=== PATIENT | male | born 1965 | race Caucasian/White ===

== ENCOUNTER → 2019-12-22 | Day surgery (SDC) | payer BC ==
--- NOTE | 2019-12-20 09:00 | Diagnostic Imaging Report ---
EXAMINATION: PA and lateral views of the chest. COMPARISON: None CLINICAL HISTORY: Preop exam for kidney stones DISCUSSION: Lines/tubes: None. Lungs: The lungs are well inflated and clear. There is no evidence of pneumonia or pulmonary edema. Pleura: There is no pleural effusion or pneumothorax. Heart and mediastinum: Cardiomediastinal silhouette is unremarkable. Pulmonary vasculature is normal. Bones and soft tissues: No acute bony abnormalities. Age-appropriate degenerative changes in the thoracic spine IMPRESSION: No acute cardiopulmonary abnormalities. Signed by: Dr. Femi Kraus M.D. on 12/20/2019 8:56 AM
[2019-12-20 09:17] LABS: BASOPHILS % 0.9 % (0.0-1.0); EOSINOPHILS # (AUTO) 0.1 (0.0-0.4); EOSINOPHILS % 1.1 % (0.0-6.0); HEMATOCRIT 50.2 % (38.2-49.6); HEMOGLOBIN 17.4 g/dL (14.0-18.0); LYMPHOCYTES # (AUTO) 1.7 (1.0-3.2); LYMPHOCYTES % 36.4 % (18.0-39.1); MEAN CORPUSCULAR HEMOGLOBIN 30.1 pg (28-32); MEAN CORPUSCULAR HGB CONC 34.7 g/dL (31-35); MEAN CORPUSCULAR VOLUME 86.7 fL (81-99); MONOCYTES # (AUTO) 0.3 (0.2-0.8); MONOCYTES % 5.8 % (4.4-11.3); NEUTROPHILS # (AUTO) 2.6 (2.1-6.9); NEUTROPHILS % 55.6 % (38.7-80.0); PLATELET COUNT 188 x10e3/uL (140-360); RED BLOOD COUNT 5.79 x10e6/uL (4.3-5.7)
[2019-12-20 09:49] LABS: ANION GAP 16.4 mmol/L (8-16); BLOOD UREA NITROGEN 13 mg/dL (7-26); BUN/CREATININE RATIO 15 (6-25); CALCIUM 9.4 mg/dL (8.4-10.2); CARBON DIOXIDE 25 mmol/L (22-29); CHLORIDE 105 mmol/L (98-107); CREATININE, SERUM 0.87 mg/dL (0.72-1.25); EST GLOMERULAR FILTRATION RATE > 60 ML/MIN (60-); GLUCOSE 111 mg/dL (74-118); POTASSIUM 3.4 mmol/L (3.5-5.1); SODIUM 143 mmol/L (136-145)
[~2019-12-22] MED LIST: AMLODIPINE BESYL5 MG PO; CEFTRIAXONE SOD 1 GM/NS 50 ML 50 ML IV ONE; CHLORTHALIDONE25 MG; DEXAMETHASONE SOD PHOS INJ 4 MG/ML VIAL ONE; DIOVAN80 MG PO; IOPAMIDOL 300MG/ML 50ML INFUS..BTL IV ONE; LIDOCAINE HCL 2% LOCAL INJ 5 ML SDV VIAL INJ ONE; MIDAZOLAM HCL 2 MG/2 ML VIAL ONE; ONDANSETRON HCL INJ 2MG/ML 2ML 2 MG/ML VIAL ONE; PANTOPRAZOLE SO40 MG PO; PROPOFOL IV EMULSION 10 MG/ML 20 ML VIAL ONE; SEVOFLURANE INHAL SOLN 250 ML PEN BTL ONE; TESTONE CI200 MG/1 M IM; TESTOSTERONE25 GM; ZEBETA10 MG PO
[2019-12-22 11:53] VITALS: BP 157/71
--- NOTE | 2019-12-29 08:26 | Operative Report ---
DATE OF PROCEDURE: 12/22/2019 SURGEON: Artie Blanchard MD PREOPERATIVE DIAGNOSES: 1. Right ureteral stones. 2. Bladder stones. POSTOPERATIVE DIAGNOSES: 1. Right ureteral stones. 2. Bladder stones. OPERATIVE PROCEDURES PERFORMED: 1. Cystoscopy. 2. Bilateral retrograde pyelogram. 3. Cystolitholapaxy. 4. Right ureteroscopy with stone extraction. 5. Placement of right ureteral stent. ANESTHESIA: General anesthesia. ESTIMATED BLOOD LOSS: Minimal. INDICATIONS: Mr. Avtar Carrera is a 54-year-old gentleman with a recent history of right flank abdominal pain, who was found by CT scan to have some right kidney ureteral stones and some mild bladder stones. He now presents for definitive surgical management of these problems. PROCEDURE IN DETAIL: The patient brought into the operative room, placed in supine position. After initiation of general anesthesia, he was placed in dorsal lithotomy position and prepped and draped in the usual sterile fashion. Cystourethroscopy was performed using a 22-Kosovan cystoscope. The anterior and posterior urethra were noted to be normal. The prostate revealed moderate elevation of the median bar, but normal lateral lobar tissue. The bladder was entered with mild difficulty. Upon entrance into the bladder, the ureteral orifices were in normal anatomical position. There was largely clear efflux seen coming from both sides. There were 3 or 4 bladder stones measuring in size from about 0.5 cm to 1 cm in diameter. There was grade 1-2 trabeculations noted in the bladder. Using a 5-Kosovan open-ended catheter, bilateral retrograde pyelograms were performed. This revealed no stones or filling defects on the left side, but there were some filling defects on the right side suspicious for small calculi. The stones in the bladder were irrigated free and one large one was broken with alligator forceps. These fragments were removed and sent to pathology for microscopic analysis. A wire was then placed up into the right renal pelvis and a right ureteral access sheath was placed. Flexible ureteroscopy was then performed. The visualized portion of the proximal ureter was normal. There was some mild narrowing noted in the region of the UPJ, presumably from recent stone passage. Visualization of all of the calices revealed multiple small stones in varying sizes between 3 and 5 mm in diameter. Most of these were irrigated free with the larger ones were removed with the basket. All the obtained stones were sent to pathology for microscopic analysis. Once there were normal calcifications seen, the ureteroscope and the ureteral access sheath were both removed and a double pigtail stent was placed such that one coil was in the renal pelvis and the subsequent coil was in the bladder. The string was allowed to exit the urethral meatus. The bladder was then drained in its entirety and the cystoscope and the sheath were removed. The patient was returned to supine position and anesthesia was reversed. He was transferred to a bed and taken to the postanesthesia care unit in good condition. Of note, the needle and instrument count were correct at the conclusion of the case. MD BUBBA Serna/LEXUS /[id number]
== END | disposition home or self-care (01) ==
LOC: OR 07:20
PROVIDERS: ATTEND Urology
DX: N20.1 Calculus of ureter (principal); N21.0 Calculus in bladder; N32.89 Other specified disorders of bladder; G47.33 Obstructive sleep apnea (adult) (pediatric); I10 Essential (primary) hypertension; K44.9 Diaphragmatic hernia without obstruction or gangrene; K21.9 Gastro-esophageal reflux disease without esophagitis; Z91.041 Radiographic dye allergy status; Z91.012 Allergy to eggs; Z01.810 Encounter for preprocedural cardiovascular examination; Z01.818 Encounter for other preprocedural examination; Z87.891 Personal history of nicotine dependence; Z68.41 Body mass index [BMI] 40.0-44.9, adult
CPT/HCPCS: 36415; 52317; 52332; 52352; 71046; 74420; 80048; 85025; 88300; 93005; C1758; C1769; C2617; J0696; J1100; J2001; J2250; J2405; J2704; Q9967

== ENCOUNTER → 2020-02-09 | Day surgery (SDC) | payer BC ==
[~2020-02-09] MED LIST changes: -CEFTRIAXONE SOD 1 GM/NS 50 ML 50 ML IV ONE; -DEXAMETHASONE SOD PHOS INJ 4 MG/ML VIAL ONE; +FENTANYL CITRATE/PF 100MCG/2 ML INJ ONE; -IOPAMIDOL 300MG/ML 50ML INFUS..BTL IV ONE; -LIDOCAINE HCL 2% LOCAL INJ 5 ML SDV VIAL INJ ONE; -ONDANSETRON HCL INJ 2MG/ML 2ML 2 MG/ML VIAL ONE; -SEVOFLURANE INHAL SOLN 250 ML PEN BTL ONE
--- OUTSIDE RECORDS SUMMARY | 2020-02-09 11:03 | XMS REPORT ---
Author Author [facility] t Organization [facility] Address [address] [place] [address] Phone Unavailable Care Team Providers Care Brand Inspector Name Role Phone Bharat ETIENNE, Tom PCP Christian DOVE Attphys Unavailable Tom Nicholson MD Attphys Payers Payer Name Policy Type Policy Number Effective Date Expiration Date S juanito [employer]M BLUE CROSSxxxxxxxxxxxx2018-PresentPPO xxxxxxxxxxxx 2018 00:00:00 Luis Felipe Cheney Problems Condition Name Condition Details Condition Category Status Onset Date Resolution Date Last Treatment Date Treating Clinician Comments Source Abnormal EKG Abnormal EKG Disease Active 2019-10-17 00:00:00 Overview: with risk factors will refer to cardiology for eval Luis Felipe Cheney Prostate cancer screening Prostate cancer screening Disease Ac tive 2019-10-13 00:00:00 Luis Felipe torres History of peptic ulcer History of peptic ulcer Disease Active 2019-10-13 00:00:00 Luis Felipe torres Gastroesophageal reflux disease with esophagitis Gastr oesophageal reflux disease with esophagitis Disease Active 2019-10-13 00:00:00 Luis Felipe Cheney Morbid obesity Morbid obesity Disease Active 2019-10-13 00:00:00 Luis Felipe Cheney TRENA on CPAP TRENA on CPAP Disease Active 2019-10-13 00:00:00 Luis Felipe Cheney Uncontrolled hypertension Uncontrolled hypertension Disease Ac tive 2019-10-13 00:00:00 Luis Felipe torres Male hypogonadism Male hypogonadism Disease Active 2019-10-13 00:00:00 Luis Felipe Cheney Allergies, Adverse Reactions, Alerts Allergy Name Allergy Type Status Severity Reaction(s) Onset Date Inacti ve Date Treating Clinician Comments Source Egg Propensity to adverse reactions to drug Active Shortness Of Breath 2019-10-13 00:00:00 Luis Felipe Meth odist Social History Social Habit Start Date Stop Date Quantity Comments Source History of tobacco use Current smoker Luis Felipe Cheney Sex Assigned At [facility] sp[facility] Shravan Alcohol intake 2019-10-13 00:00:00 2019-10-13 00:00:00 Ex-drinker (fi nding) Luis Felipe Cheney Smoking Status Start Date Stop Date Source Former smoker 2019-10-13 00:00:00 2019-10-13 00:00:00 Luis Felipe Cheney Medications Ordered Medication Name Filled Medication Name Start Date Stop Da te Current Medication? Ordering Clinician Indication Dosage Frequency Signature (SIG) Comments Components Source testosterone cypionate 200 mg/mL kit 2019-10-13 15:45:51 Ye s 50mg Inject 50 mg into the shoulder, thigh, or buttocks. Luis Felipe Cheney pantoprazole (PROTONIX) 40 MG EC tablet 2019-10-13 00:00:00 Yes 40mg QD Take 1 tablet (40 mg total) by mouth daily. Luis Felipe Cheney bisoprolol (ZEBETA) 5 MG tablet 2019-10-13 00:00:00 05:59:00 No 5mg QD Take 1 tablet (5 mg total) by mouth daily. Luis Felipe Cheney valsartan (DIOVAN) 80 MG tablet 2019-10-13 00:00:00 05:59:00 No 80mg QD Take 1 tablet (80 mg total) by mouth daily. Luis Felipe Cheney NIFEdipine CC (ADALAT CC) 90 MG 24 hr tablet 201 06-09-23 00:00:00 2019-10-13 00:00:00 No 90mg QD Take 90 mg by mouth daily. Luis Felipe Cheney pantoprazole (PROTONIX) 40 MG EC tablet 00:00:00 2019-10-13 00:00:00 No 40mg QD Take 40 mg by mouth daily. Luis Felipe Cheney escitalopram (LEXAPRO) 5 MG tablet 2019-09-15 00:00:00 00:00:00 No 5mg QD Take 5 mg by mouth daily. Luis Felipe Cheney Vital Signs Vital Name Observation Time Observation Value Comments Source Systolic blood pressure 2019-10-13 15:42:00 146 mm[Hg] Luis Felipe Cheney Diastolic blood pressure 2019-10-13 15:42:00 96 mm[Hg] Luis Felipe Cheney Heart rate 2019-10-13 15:42:00 78 /min Luis Felipe Cheney Body temperature 2019-10-13 15:42:00 37.28 Yolette Hous errol Shravan Body height 2019-10-13 15:42:00 172.7 cm Luis Felipe Cheney Body weight 2019-10-13 15:42:00 131.362 kg Luis Felipe Cheney BMI 2019-10-13 15:42:00 44.03 kg/m2 Luis Felipe Cheney Oxygen saturation in Arterial blood by Pulse oximetry 10-13 15:42:00 97 /min Luis Felipe Cheney Procedures Procedure Date / Time Performed Performing Clinician [facility] e ECG 12-LEAD 2019-10-13 17:56:51 Tom Nicholson BASIC METABOLIC PANEL 2019-10-13 06:00:00 Tom Nicholson CBC WITH PLATELET AND DIFFERENTIAL 2019-10-13 06:00:00 Cooper Nicholson HEMOGLOBIN A1C 2019-10-13 06:00:00 Tom Nicholson HEPATIC FUNCTION PANEL 2019-10-13 06:00:00 Tom Nicholson on Shravan LIPID PANEL 2019-10-13 06:00:00 Tom Nicholson PROSTATE SPECIFIC ANTIGEN 2019-10-13 06:00:00 Tom Nicholson THYROID STIMULATING HORMONE 2019-10-13 06:00:00 Tom Nicholson URINALYSIS, AUTOMATED WITH MICROSCOPY 2019-10-13 06:00:00 Tom Nicholson PROLACTIN LEVEL 2019-10-13 06:00:00 Tom Nicholson TESTOSTERONE LEVEL, TOTAL, ADULT MALE 2019-10-13 06:00:00 Tom Nicholson Plan of Care Planned Activity Planned Date Details Comments Source Future Scheduled Test [code = ] Future Scheduled Test [code = ] Future Scheduled Test [code = ] Results Test Description Test Time Test Comments Results Result Comments Source CHEST 2 VIEWS 2019-12-20 08:56:00 [place] [address] Patient Name: YEVGENIY MCCOY MR #: [id number] : 1965 Age/Sex: 54/M Req #: [id number] [facility] Physician: Ordered by: LOS DOVE MD Report #: [id number] Location: OR Room/Bed: Procedure: [id number] DX/CHEST 2 VIEWS Exam Date: 12/20/19 Exam Time: 0840 REPORT STATUS: Signed EXAMINATION: PA and lateral views of the chest. COMPARISON: None CLINICAL HISTORY: Preop exam for kidney stones DISCUSSION: Lines/tubes: None. Lungs: The lungs are well inflated and clear. There is no evidence of pneumonia or pulmonary edema. Pleura: There is no pleural effusion or pneumothorax. Heart and mediastinum: Cardiomediastinal silhouette is unremarkable. Pulmonary vasculature is normal. Bones and soft tissues: No acute bony abnormalities. Age-appropriate degenerative changes in the thoracic spine IMPRESSION: No acute cardiopulmonary abnormalities. Signed by: Dr. Femi Kraus M.D. on 12/20/2019 8:56 AM Dictated By: FEMI KRAUS MD 5 Transcribed By: RIYA on 12/20/19855 COPY TO: LOS DOVE MD Basic metabolic panel 2019-10-15 11:26:00 Test Item Glucose (test code = 2345-7) 110 mg/dL 65-99 H Fasting reference interval For someone without known diabetes, a glucose valuebetween 100 and 125 mg/dL is consistent withprediabetes and should be confirmed with afollow-up test. BUN (test code = 3094-0) 8 mg/dL 7-25 Creatinine (test code = 2160-0) 0.94 mg/dL 0.7-1.33 For patients >49 years of age, the reference limitfor Creatinine is approximately 13% higher for peopleidentified as -Fijian. EGFR Non-Afr. Fijian (test code = 2775) 90 > OR = 60 mL /min/1.73m2 EGFR (test code = 08746-7) 105 > OR = 60 mL/min/1.73m2 BUN/creatinine ratio (test code = 3097-3) NOT APPLICABLE 6- 22 (ana laura c) Sodium (test code = 2951-2) 144 mmol/L 135-146 Potassium (test code = 2823-3) 3.2 mmol/L 3.5-5.3 L Chloride (test code = 5-0) 102 mmol/L 98-110 CO2 (test code = 2027-) 30 mmol/L 20-32 Calcium (test code = 02437-8) 9.4 mg/dL 8.6-10.3 CHEMO (test code = CHEMO) FASTING:YESCOLLECTION KIT GI KATHLEEN TO PATIENT. PATIENT ADVISED TO RETURN.FASTING: YES RAC (test code = RAC) Performing Organization Info rmation: Site ID: RGA Name: [facility] Address: [address] [place] [phone] Director: Jordi Pastrana Lab Interpretation (test code = 39747-2) Abnormal [place] [facility] [id number] 11:26:00* Test Item Value Reference Range Interpretation Comments Cholesterol, total (test code = 2093-3) 256 mg/dL <200 H HDL cholesterol (test code = 5-9) 49 mg/dL >40 Triglycerides (test code = 2571-8) 154 mg/dL <150 H LDL cholesterol calculated (test code = 18577-3) 177 mg/dL (calc) H Reference range: <100 Desirable range <100 mg/dL for primary prevention; <70 mg/dL for patients with CHD or diabetic patients with > or = 2 CHD risk factors. LDL-C is now calculated using the Abraham-Sania calculation, which is a validated novel method providing better accuracy than the Friedewald equation in the estimation of LDL-C. Abraham SS et al. ROBLES. 2013;310(19): 0687-2826 (http:/ /education.Comparameglio.it/faq/ZMY667) Cholesterol/HDL ratio (test code = 9830-1) 5.2 <5.0 (calc) H Non-HDL cholesterol (test code = 87060-7) 207 <130 mg/dL ( calc) H For patients with diabetes plus 1 major ASCVD risk factor, treating to a non-HDL-C goal of <100 mg/dL (LDL-C of <70 mg/dL) is considered a therapeutic option. CHEMO (test code = CHEMO) FASTING:YESCOLLECTION KIT GI KATHLEEN TO PATIENT. PATIENT ADVISED TO RETURN.FASTING: YES RAC (test code = RAC) Performing Organization Info rmation: Site ID: JONAH Name: [facility] Address: [address] [place] [phone] Director: Jordi Pastrana Lab Interpretation (test code = 89118-9) Abnormal [place] [facility] function [id number] 11:26:00* Test Item Value Reference Range Interpretation Comments Protein (test code = 2885-2) 7.0 g/dL 6.1-8.1 Albumin, S (test code = 1751-7) 4.6 g/dL 3.6-5.1 Globulin, total (test code = 26366-0) 2.4 1.9- 3.7 g/dL (c alc) Albumin/globulin ratio (test code = 1759-0) 1.9 1.0- 2.5 ( calc) Total bilirubin (test code = 1974-) 1.0 mg/dL 0.2-1.2 Bilirubin direct (test code = 1967-) 0.2 mg/dL < OR = 0.2 Bilirubin, indirect (test code = 1970-) 0.8 0.2- 1.2 mg/d L (calc) Alkaline phosphatase (test code = 6768-6) 95 U/L 40-115 AST (test code = 1920-8) 22 U/L 10-35 ALT (test code = 1742-6) 35 U/L 9-46 CHEMO (test code = CHEMO) FASTING:YESCOLLECTION KIT GI KATHLEEN TO PATIENT. PATIENT ADVISED TO RETURN.FASTING: YES RAC (test code = RAC) Performing Organization Info rmation: Site ID: JONAH Name: [facility] Address: [address] [place] [address] Director: Jordi Pastrana [place] [facility] [id number] 11:26:00* Test Item Value Reference Range Interpretation Comments Hemoglobin A1C (test code = 4548-4) 6.0 <5.7 % of total Hg b H For someone without known diabetes, a hemoglobin A1c value between 5.7% and 6.4% is consistent withprediabetes and should be confirmed with a follow-up test. For someone with known diabetes, a value <7%indicates that their diabetes is well controlled. [id number] should be individualized based on duration ofdiabetes, age, comorbid conditions, and otherconsiderations. This assay result is consistent with an increased riskof diabetes. Currently, no consensus exists regarding use ofhemoglobin A1c for diagnosis of diabetes for children. CHEMO (test code = CHEMO) FASTING:YESCOLLECTION KIT GI KATHLEEN TO PATIENT. PATIENT ADVISED TO RETURN.FASTING: YES RAC (test code = RAC) Performing Organization Info rmation: Site ID: RGA Name: [facility] Address: [address] [place] [phone] Director: Jordi Frias Interpretation (test code = 85705-4) Abnormal [place] [facility] specific [id number] 11:26:00* Test Item Value Reference Range Interpretation Comments PSA (test code = 2857-1) 1.3 ng/mL < OR = 4.0 The total PSA value from this assay system is standardized against the WHO standard. The test result will be approximately 20% lower when compared to the equimolar-standardized total PSA (Alonso Biscoe). Comparison of serial PSA results should be interpreted with this fact in mind. This test was performed using the Siemens chemiluminescent method. Values obtained from different assay methods cannot be usedinterchangeably. PSA levels, regardless ofvalue, should not be interpreted as absoluteevidence of the presence or absence of disease. CHEMO (test code = CHEMO) FASTING:YESCOLLECTION KIT GI KATHLEEN TO PATIENT. PATIENT ADVISED TO RETURN.FASTING: YES RAC (test code = RAC) Performing Organization Info rmation: Site ID: RGA Name: [facility] Address: [address] [place] [phone] Director: Jordi Pastrana [place] MethodistThy[facility] stimulating [id number] 11:26:00* Test Item Value Reference Range Interpretation Comments TSH (test code = 3016-3) 1.80 0.40- 4.50 mIU/L CHEMO (test code = CHEMO) FASTING:YESCOLLECTION KIT GI KATHLEEN TO PATIENT. PATIENT ADVISED TO RETURN.FASTING: YES RAC (test code = RAC) Performing Organization Info rmation: Site ID: RGA Name: [facility] Address: [address] [place] [address] Director: Jordi Briscoe [facility] and [id number] 11:26:00* Test Item Value Reference Range Interpretation Comments WBC (test code = 6690-2) 5.4 3.8- 10.8 Thousand/uL RBC (test code = 789-8) 5.92 4.20- 5.80 Million/uL H HGB (test code = 718-7) 18.0 g/dL 13.2-17.1 H HCT (test code = 4544-3) 53.3 % 38.5-50 H MCV (test code = 787-2) 90.0 fL 80-100 MCH (test code = 785-6) 30.4 pg 27-33 MCHC (test code = 786-4) 33.8 g/dL 32-36 RDW (test code = 788-0) 14.1 % 11-15 Platelet count (test code = 777-3) 195 140- 400 Thousand/u L MPV (test code = 776-5) 11.4 fL 7.5-12.5 Neutrophils, absolute (test code = 751-8) 3521 1,500 - 7,80 0 cells/uL Lymphocytes, absolute (test code = 731-0) 1490 850- 3,900 c ells/uL Monocytes, absolute (test code = 742-7) 313 200- 950 cells /uL Eosinophils, absolute (test code = 711-2) 38 15- 500 cell s/uL Basophils, absolute (test code = 704-7) 38 0- 200 cells/u L Neutrophils (test code = 770-8) 65.2 % Lymphocytes (test code = 736-9) 27.6 % Monocytes (test code = 5905-5) 5.8 % Eosinophils (test code = 713-8) 0.7 % Basophils + RC (test code = 706-2) 0.7 % CHEMO (test code = CHEMO) FASTING:YESCOLLECTION KIT GI KATHLEEN TO PATIENT. PATIENT ADVISED TO RETURN.FASTING: YES RAC (test code = RAC) Performing Organization Info rmation: Site ID: JONAH Name: [facility] Address: [address] [place] [phone] Director: Jordi Pastrana Lab Interpretation (test code = 56225-9) Abnormal [place] MethodistUrinalysis, automated with [id number] 11:26:00* Test Item Value Reference Range Interpretation Comments Color, UA (test code = 5778-6) YELLOW YELLOW Appearance (test code = 5767-9) CLOUDY CLEAR A Specific gravity, urine (test code = 5811-5) 1.009 1.001-1.0 35 pH, urine (test code = 5803-2) 8.0 5.0-8.0 Glucose, urine (test code = 66551-3) NEGATIVE NEGATIVE Bilirubin, UA (test code = 5770-3) NEGATIVE NEGATIVE Ketones, UA (test code = 2514-8) NEGATIVE NEGATIVE Occult blood, urine (test code = 5794-3) NEGATIVE NEGATIVE Protein, UA (test code = 79762-4) NEGATIVE NEGATIVE Nitrite, UA (test code = 5802-4) NEGATIVE NEGATIVE Leukocyte esterase, UA (test code = 5799-2) NEGATIVE NEGATIVE WBC, UA (test code = 5821-4) NONE SEEN < OR = 5 /HPF RBC, UA (test code = 78731-6) 0-2 < OR = 2 /HPF Squamous epithelial cells, UA (test code = 30600-4) NONE SEEN < OR = 5 /HPF Bacteria, UA (test code = 5769-5) NONE SEEN NONE SEEN /HPF Hyaline casts, UA (test code = 5796-8) NONE SEEN NONE SEEN /LPF CHEMO (test code = CHEMO) FASTING:YESCOLLECTION KIT GI KATHLEEN TO PATIENT. PATIENT ADVISED TO RETURN.FASTING: YES RAC (test code = RAC) Performing Organization Info rmation: Site ID: JONAH Name: [facility] Address: [address] [place] [phone] Director: Jordi Pastrana Lab Interpretation (test code = 69014-0) Abnormal [place] MethodistProlactin [id number] 11:26:00* Test Item Value Reference Range Interpretation Comments Prolactin (test code = 2842-3) 8.6 ng/mL 2-18 CHEMO (test code = CHEMO) FASTING:YESCOLLECTION KIT GI KATHLEEN TO PATIENT. PATIENT ADVISED TO RETURN.FASTING: YES RAC (test code = RAC) Performing Organization Info rmation: Site ID: RGA Name: [facility] Address: [address] [place] [phone] Director: Jordi CheneyTestosterone level, total, adult [id number] 11:26:00* Test Item Value Reference Range Interpretation Comments Testosterone, total, adult male (test code = 2986-8) 484 ng/dL 2 50-827 CHEMO (test code = CHEMO) FASTING:YESCOLLECTION KIT GI KATHLEEN TO PATIENT. PATIENT ADVISED TO RETURN.FASTING: YES RAC (test code = RAC) Performing Organization Info rmation: Site ID: RGA Name: [facility] Address: [address] [place] [phone] Director: Jordi CheneyECG 12 [id number] 12:04:28* Test Item Value Reference Range Interpretation Comments Ventricular rate (test code = 253) 77 Atrial rate (test code = 255) 77 CT interval (test code = 266) 166 QRSD interval (test code = 260) 106 QT interval (test code = 264) 394 QTC interval (test code = 265) 445 P axis 1 (test code = 267) 46 QRS axis 1 (test code = 268) 35 T wave axis (test code = 270) 48 EKG impression (test code = 273) Normal sinus rhythm-N onspecific T wave abnormality-Abnormal ECG-No previous ECGs available- Luis Felipe Cheney
--- OUTSIDE RECORDS SUMMARY | 2020-02-09 11:03 | XMS REPORT | Clinical Summary ---
Author Author [facility] Address Unknown Phone Unavailable Care Team Providers Care Crtt Name Role Phone Tom Nicholson MD PCP Allergies Comments Active Allergy Reactions Severity Noted Date Egg Shortness Of High 10/13/2019 Breath Medications End Date Status Medication Sig Dispensed Refills Start Date Active testosterone cypionate Inject 50 mg 0 200 mg/mL kit into the shoulder, thigh, or buttocks. Active pantoprazole (PROTONIX) Take 1 tablet 90 tablet 3 40 MG EC tablet (40 mg total) 0 by mouth daily. 10/12/2020 Active bisoprolol (ZEBETA) 5 MG Take 1 tablet 30 tablet 11 tablet (5 mg total) 0 by mouth daily. 10/12/2020 Active valsartan (DIOVAN) 80 MG Take 1 tablet 30 tablet 11 tablet (80 mg total) 0 by mouth daily. 10/13/2019 Discontinued (Reorder) pantoprazole (PROTONIX) Take 40 mg by 0 40 MG EC tablet mouth daily. 9 10/13/2019 Discontinued NIFEdipine CC (ADALAT CC) Take 90 mg by 0 08/29 90 MG 24 hr tablet mouth daily. 9 10/13/2019 Discontinued (Side effects) escitalopram (LEXAPRO) 5 Take 5 mg by 0 09/15 MG tablet mouth daily. 9 Active Problems Problem Noted Date Abnormal EKG 10/17/2019 Overview: with risk factors will refer to cardiol jaime for eval Prostate cancer screening 10/13/2019 History of peptic ulcer 10/13/2019 Gastroesophageal reflux disease with esophagitis Morbid obesity 10/13/2019 TRENA on CPAP 10/13/2019 Uncontrolled hypertension 10/13/2019 Male hypogonadism 10/13/2019 Encounters Care Team Description Date Type Specialty Tom Nicholson MD Hypokalemia (Primary Dx) 10/18/2019 Orders Only Family Medicine Tom Nicholson MD Uncontrolled hypertension (Primary Dx); TRENA on CPAP; Morbid obesity (HCC); Gastroesophageal reflux disease with esophagitis; History of peptic ulcer; Prostate cancer screening; Male hypogonadism; Abnormal EKG 10/13/2019 Office Visit Family Medicine after 02/08/2019 Social History Date Tobacco Use Types Packs/Day Years Used Quit: 2003 Former Smoker Smokeless Tobacco: Former Quit: 2003 User Drinks/Week oz/Week Comments Alcohol Use Not Currently Sex Assigned at Date Recorded Not on file Industry Job Start Date Occupation Not on file Not on file Not on file Travel End Travel History Travel Start No recent travel history available. Last Filed Vital Signs Reading Time Taken Comments Vital Sign 146/96 10/13/2019 9:42 AM K 9 HANDLER/ DEPUT[facility] Blood Pressure 78 10/13/2019 9:42 AM K 9 HANDLER/ DEPUTY Pulse 37.3 C (99.1 F) 10/13/2019 9:42 AM K 9 HANDLER/ DEPUTY Temperature - - Respiratory Rate 97% 10/13/2019 9:42 AM K 9 HANDLER/ DEPUTY Oxygen Saturation - - Inhaled Oxygen Concentration 131 kg (289 lb 9.6 oz) 10/13/2019 9:42 AM K 9 HANDLER/ DEPUTY Weight 172.7 cm (5' 8") 10/13/2019 9:42 AM K 9 HANDLER/ DEPUTY Height 44.03 10/13/2019 9:42 AM K 9 HANDLER/ DEPUTY Body Mass Index Plan of Treatment Health Maintenance Due Date Last Done Comments SHINGLES VACCINES (#1) 2013 INFLUENZA VACCINE 04/28/2020 COLONOSCOPY SCREENING 05/29/2024 05/29/2014 Procedures Comments Procedure Name Priority Date/Time Associated Diag nosis ECG 12-LEAD Routine 10/13/2019 Uncontrolled hy pertension 11:56 AM K 9 HANDLER/ DEPUTY TESTOSTERONE LEVEL, Routine 10/13/2019 TOTAL, ADULT MALE 12:00 AM K 9 HANDLER/ DEPUTY PROLACTIN LEVEL Routine 10/13/2019 12:00 AM K 9 HANDLER/ DEPUTY URINALYSIS, AUTOMATED Routine 10/13/2019 Uncontro lled hypertension WITH MICROSCOPY 12:00 AM K 9 HANDLER/ DEPUTY THYROID STIMULATING Routine 10/13/2019 Morbid obe sity (HCC) HORMONE 12:00 AM K 9 HANDLER/ DEPUTY PROSTATE SPECIFIC ANTIGEN Routine 10/13/2019 Pros blackman cancer screening 12:00 AM K 9 HANDLER/ DEPUTY LIPID PANEL Routine 10/13/2019 Uncontrolled hy pertension 12:00 AM K 9 HANDLER/ DEPUTY Morbid obesity (HCC) HEPATIC FUNCTION PANEL Routine 10/13/2019 Morbid obesity (HCC) 12:00 AM K 9 HANDLER/ DEPUTY Gastroesophageal reflux disease with esophagitis HEMOGLOBIN A1C Routine 10/13/2019 Morbid obesity (HCC) 12:00 AM K 9 HANDLER/ DEPUTY CBC WITH PLATELET AND Routine 10/13/2019 TRENA on C PAP DIFFERENTIAL 12:00 AM K 9 HANDLER/ DEPUTY BASIC METABOLIC PANEL Routine 10/13/2019 Uncontro lled hypertension 12:00 AM K 9 HANDLER/ DEPUTY after 02/08/2019 Results * ECG 12 lead (10/13/2019 11:56 AM K 9 HANDLER/ DEPUTY) Ventricular 77 [facility] rate Atrial rate 77 [facility] VT interval 166 [facility] QRSD interval 106 [facility] QT interval 394 [facility] QTC interval 445 [facility] P axis 1 46 [facility] QRS axis 1 35 [facility] T wave axis 48 [facility] EKG impression Normal sinus [facility] rhythm-Nonspecific T wave abnormality-Abnormal ECG-No previous ECGs available- Specimen Narrative Performed At This result has an attachment that is n ot available. Performing Organization Address [facility] Ph one Number [facility] MUSE [address] [place] [address] * Testosterone level, total, adult male (10/13/2019 12:00 AM K 9 HANDLER/ DEPUTY) Testosterone, 484 250 - 827 ng/dL [facility] total, adult DIAGNOSTICS male [place] Specimen Narrative Performed At FASTING:YES [facility] COLLECTION KIT GIVEN TO PATIENT. PATIEN T ADVISED TO RETURN. FASTING: YES Resulting Agency Comment Performing Organization Information: Site ID: [id number] Name: [facility] Address: [address] [place] [phone] Director: Jordi Pastrana Performing Organization Address City/[facility] Ph one Number [facility] [address] [phone] * Prolactin level (10/13/2019 12:00 AM K 9 HANDLER/ DEPUTY) Prolactin 8.6 2.0 - 18.0 ng/mL [facility] [place] Specimen Narrative Performed At FASTING:YES [facility] COLLECTION KIT GIVEN TO PATIENT. PATIEN T ADVISED TO RETURN. FASTING: YES Resulting Agency Comment Performing Organization Information: Site ID: [id number] Name: [facility] Address: [address] [place] [id number] Director: Jordi Pastrana Performing Organization Address City/[facility] Ph one Number [facility] [place] [phone] * Urinalysis, automated with microscopy (10/13/2019 12:00 AM K 9 HANDLER/ DEPUTY) Color, UA YELLOW YELLOW [facility] [place] Appearance CLOUDY (A) CLEAR [facility] [place] Specific 1.009 1.001 - 1.035 [facility] gravity, urine DIAGNOSTICS [place] pH, urine 8.0 5.0 - 8.0 [facility] [place] Glucose, urine NEGATIVE NEGATIVE [facility] [place] Bilirubin, UA NEGATIVE NEGATIVE [facility] [place] Ketones, UA NEGATIVE NEGATIVE [facility] [place] Occult blood, NEGATIVE NEGATIVE [facility] urine [facility] [place] Protein, UA NEGATIVE NEGATIVE [facility] [place] Nitrite, UA NEGATIVE NEGATIVE [facility] [place] Leukocyte NEGATIVE NEGATIVE [facility] esterase, UA [facility] [place] WBC, UA NONE SEEN < OR = 5 /HPF [facility] [place] RBC, UA 0-2 < OR = 2 /HPF [facility] [place] Squamous NONE SEEN < OR = 5 /HPF [facility] epithelial DIAGNOSTICS cells, UA [place] Bacteria, UA NONE SEEN NONE SEEN /HPF [facility] [place] Hyaline casts, NONE SEEN NONE SEEN /LPF [facility] UA [facility] [place] Specimen Urine Narrative Performed At FASTING:YES [facility] COLLECTION KIT GIVEN TO PATIENT. PATIEN T ADVISED TO RETURN. FASTING: YES Resulting Agency Comment Performing Organization Information: Site ID: [id number] Name: [facility] Address: [address] [place] [phone] Director: Jordi Pastrana Performing Organization Address [facility] Ph one Number [facility] [address] [phone] * CBC with platelet and differential (10/13/2019 12:00 AM K 9 HANDLER/ DEPUTY) Pathologist [facility] WBC 5.4 3.8 - 10.8 [facility] Thousand/uL DIAGNOSTICS [place] RBC 5.92 (H) 4.20 - 5.80 [facility] Million/uL [facility]AG[facility]STICS [place] HGB 18.0 (H) 13.2 - 17.1 g/dL [facility] [place] HCT 53.3 (H) 38.5 - 50.0 % [facility] [place] MCV 90.0 80.0 - 100.0 fL [facility] [place] MCH 30.4 27.0 - 33.0 pg [facility] [place] MCHC 33.8 32.0 - 36.0 g/dL [facility] [place] RDW 14.1 11.0 - 15.0 % [facility] [place] Platelet count 195 140 - 400 [facility] Thousand/uL [facility]AGNOSTICS [place] MPV 11.4 7.5 - 12.5 fL [facility] [place] Neutrophils, 3,521 1,500 - 7,800 [facility] absolute cells/uL DIAGNOSTICS [place] Lymphocytes, 1,490 850 - 3,900 cells/uL [facility] absolute DIAGNOSTICS [place] Monocytes, 313 200 - 950 cells/uL [facility] absolute DIAGNOSTICS [place] Eosinophils, 38 15 - 500 cells/uL [facility] absolute [facility]AG[facility] [place] Basophils, 38 0 - 200 cells/uL [facility] absolute [facility]AGNOSTICS [place] Neutrophils 65.2 % [facility] [place] Lymphocytes 27.6 % [facility] [place] Monocytes 5.8 % [facility] [place] Eosinophils 0.7 % [facility] [place] Basophils + RC 0.7 % [facility] [place] Specimen Blood Narrative Performed At FASTING:YES [facility] COLLECTION KIT GIVEN TO PATIENT. PATIEN T ADVISED TO RETURN. FASTING: YES Resulting Agency Comment Performing Organization Information: Site ID: [id number] Name: [facility] Address: [address] [place] [phone] Director: Jordi Pastrana Performing Organization Address City/[facility] Ph one Number [facility] [address] [phone] * Thyroid stimulating hormone (10/13/2019 12:00 AM K 9 HANDLER/ DEPUTY) TSH 1.80 0.40 - 4.50 mIU/L [facility] [place] Specimen Blood Narrative Performed At FASTING:YES [facility] COLLECTION KIT GIVEN TO PATIENT. PATIEN T ADVISED TO RETURN. FASTING: YES Resulting Agency Comment Performing Organization Information: Site ID: RGA Name: [facility] Address: [address] [place] [phone] Director: Jordi aPstrana Performing Organization Address City/State/[facility] Ph one Number [facility] [address] [phone] * Prostate specific antigen (10/13/2019 12:00 AM K 9 HANDLER/ DEPUTY) PSA 1.3 < OR = 4.0 ng/mL [facility] Comment: DIAGNOSTICS The total PSA value from this [place] assay system is standardized against the WHO standard. The test result will be approximately 20% lower when compared to the equimolar-standardized total PSA ([place]). Comparison of serial PSA results should be interpreted with this fact in mind. This test was performed using the Siemens chemiluminescent method. Values obtained from different assay methods cannot be used interchangeably. PSA levels, regardless of value, should not be interpreted as absolute evidence of the presence or absence of disease. Specimen Blood Narrative Performed At FASTING:YES [facility] COLLECTION KIT GIVEN TO PATIENT. PATIEN T ADVISED TO RETURN. FASTING: YES Resulting Agency Comment Performing Organization Information: Site ID: RGA Name: [facility] Address: [address] [place] [phone] Director: Jordi Pastrana Performing Organization Address [facility] one Number [facility] [address] [phone] * Hemoglobin A1c (10/13/2019 12:00 AM K 9 HANDLER/ DEPUTY) Hemoglobin A1C 6.0 (H) <5.7 % of total Hgb [facility] Comment: DIAGNOSTICS For someone without known [place] diabetes, a hemoglobin A1c value between 5.7% and 6.4% is consistent with prediabetes and should be confirmed with a follow-up test. For someone with known diabetes, a value <7% indicates that their diabetes is well controlled. A1c targets should be individualized based on duration of diabetes, age, comorbid conditions, and other considerations. This assay result is consistent with an increased risk of diabetes. Currently, no consensus exists regarding use of hemoglobin A1c for diagnosis of diabetes for children. Specimen Blood Narrative Performed At FASTING:YES [facility] COLLECTION KIT GIVEN TO PATIENT. PATIEN T ADVISED TO RETURN. FASTING: YES Resulting Agency Comment Performing Organization Information: Site ID: RGA Name: [facility] Address: [address] [place] [phone] Director: Jordi Pastrana Performing Organization Address [facility] Ph one Number [facility] [address] [phone] * Hepatic function panel (10/13/2019 12:00 AM K 9 HANDLER/ DEPUTY) Pathologist [facility] Protein 7.0 6.1 - 8.1 g/dL [facility] [place] Albumin, S 4.6 3.6 - 5.1 g/dL [facility] [place] Globulin, total 2.4 1.9 - 3.7 g/dL [facility] (calc) [facility]ST[facility] [place] Albumin/globuli 1.9 1.0 - 2.5 (calc) [facility] n ratio [facility]AG[facility]ICS [place] Total bilirubin 1.0 0.2 - 1.2 mg/dL [facility] [place] Bilirubin 0.2 < OR = 0.2 mg/dL [facility] direct [facility]AG[facility] [place] Bilirubin, 0.8 0.2 - 1.2 mg/dL [facility] indirect (calc) DIAGNOSTICS [place] Alkaline 95 40 - 115 U/L [facility] phosphatase [facility]AG[facility] [place] AST 22 10 - 35 U/L [facility] [place] ALT 35 9 - 46 U/L [facility] [place] Specimen Blood Narrative Performed At FASTING:YES [facility] COLLECTION KIT GIVEN TO PATIENT. PATIEN T ADVISED TO RETURN. FASTING: YES Resulting Agency Comment Performing Organization Information: Site ID: [id number] Name: [facility] Address: [address] [place] [phone] Director: Jordi Pastrana Performing Organization Address [facility] Ph one Number [facility] [address] [phone] * Lipid panel (10/13/2019 12:00 AM K 9 HANDLER/ DEPUTY) Pathologist [facility] Cholesterol, 256 (H) <200 mg/dL [facility] total DIAGNOSTICS [place] HDL cholesterol 49 >40 mg/dL [facility] [place] Triglycerides 154 (H) <150 mg/dL [facility] [place] LDL cholesterol 177 (H) mg/dL (calc) [facility] calculated Comment: DIAGNOSTICS Reference range: <100 [place] Desirable range <100 mg/dL for primary prevention; <70 mg/dL for patients with CHD or diabetic patients with > or = 2 CHD risk factors. LDL-C is now calculated using the Zoë calculation, which is a validated novel method providing better accuracy than the Friedewald equation in the estimation of LDL-C. Abraham RATLIFF et al. ROBLES. 2013;310(19): 1190-8108 (http://education.WedWu.com/faq/LXE213) Cholesterol/HDL 5.2 (H) <5.0 (calc) [facility] ratio DiBcom [place] Non-HDL 207 (H) <130 mg/dL (calc) [facility] cholesterol Comment: DIAGNOSTICS For patients with diabetes [place] plus 1 major ASCVD risk factor, treating to a non-HDL-C goal of <100 mg/dL (LDL-C of <70 mg/dL) is considered a therapeutic option. Specimen Blood Narrative Performed At FASTING:YES [facility] COLLECTION KIT GIVEN TO PATIENT. [place] T ADVISED TO RETURN. FASTING: YES Resulting Agency Comment Performing Organization Information: Site ID: RGA Name: [facility] Address: [address] [place] [phone] Director: Jordi Pastrana Performing Organization Address City/State/Zipcode Ph one Number [facility] [address] [phone] * Basic metabolic panel (10/13/2019 12:00 AM K 9 HANDLER/ DEPUTY) Glucose 110 (H) 65 - 99 mg/dL [facility] Comment: DIAGNOSTICS Fasting [place] reference interval For someone without known diabetes, a glucose value between 100 and 125 mg/dL is consistent with prediabetes and should be confirmed with a follow-up test. BUN 8 7 - 25 mg/dL [facility] Creatinine 0.94 0.70 - 1.33 mg/dL [facility] Comment: DIAGNOSTICS For patients >49 years of age, [facility] the reference limit for Creatinine is approximately 13% higher for people identified as -Austrian. EGFR Non-Afr. 90 > OR = 60 [facility] [place] mL/min/1.73m2 [facility] EGFR 105 > OR = 60 [facility] [place] mL/min/1.73m2 [facility] BUN/creatinine NOT APPLICABLE 6 - 22 (calc) [facility] Sodium 144 135 - 146 mmol/L [facility] Potassium 3.2 (L) 3.5 - 5.3 mmol/L [facility] [place] Chloride 102 98 - 110 mmol/L [facility] CO2 30 20 - 32 mmol/L [facility] Calcium 9.4 8.6 - 10.3 mg/dL [facility] Specimen Blood Narrative Performed At FASTING:YES [facility] COLLECTION KIT GIVEN TO PATIENT. [place] T ADVISED TO RETURN. FASTING: YES Resulting Agency Comment Performing Organization Information: Site ID: RGA Name: [facility] Address: [address] [place] [address] Director: Jordi Pastrana Performing Organization Address City/State/Zipcode Ph one Number [facility] [place] [address] [place], [place] [address] after 02/08/2019 Insurance Type Payer Benefit Subscriber ID Effective Phone Address Plan / Dates Group PPO BCBS ANTHEM xxxxxxxxxxxx [id number] [address] (Home) [place] [address] Advance Directives For more information, please contact: [phone] Patient Innovation Manager Explanation Type Date Recorded Advance Directives, Living Will and Medical Power of Pickle Processor
[2020-02-09 14:18] VITALS: BP 152/91
== END | disposition home or self-care (01) ==
LOC: OR 11:00
PROVIDERS: ATTEND Internal Medicine
DX: D12.4 Benign neoplasm of descending colon (principal); K29.70 Gastritis, unspecified, without bleeding; K21.0 Gastro-esophageal reflux disease with esophagitis; K44.9 Diaphragmatic hernia without obstruction or gangrene; K64.0 First degree hemorrhoids; G47.33 Obstructive sleep apnea (adult) (pediatric); N40.0 Benign prostatic hyperplasia without lower urinary tract symptoms; N20.0 Calculus of kidney; I10 Essential (primary) hypertension; Z91.041 Radiographic dye allergy status; Z01.812 Encounter for preprocedural laboratory examination; Z11.59 Encounter for screening for other viral diseases; Z87.891 Personal history of nicotine dependence
CPT/HCPCS: 43239; 45385; 87635; J2250; J2704; J3010